=== PATIENT | female | born 1935 | race Caucasian/White ===

== ENCOUNTER 2020-06-18 16:22 | Inpatient (IN) | payer MEDICARE ==
[~2020-06-18] VITALS: Ht 157.5 cm; Wt 75.5 kg
[2020-06-18 17:48] LABS: BASOPHILS # (AUTO) 0.1 X10'3 (0-0.2); EOSINOPHILS # (AUTO) 0.1 X10'3 (0-0.9); EOSINOPHILS % (AUTO) 1.7 % (0-6); HEMATOCRIT 41.9 % (35.0-45.0); LYMPHOCYTES # (AUTO) 1.6 X10'3 (1.1-4.8); LYMPHOCYTES % (AUTO) 21.5 % (21-51); MEAN CORPUSCULAR HEMOGLOBIN 32.2 PG (27.0-31.0); MEAN CORPUSCULAR HGB CONC 33.4 g/dL (33.0-36.5); MEAN CORPUSCULAR VOLUME 96.3 FL (78-98); MEAN PLATELET VOLUME 7.9 FL (7.4-10.4); MONOCYTES # (AUTO) 0.7 X10'3 (0-0.9); MONOCYTES % (AUTO) 8.7 % (2-12); NEUTROPHILS # (AUTO) 5.1 X10'3 (1.8-7.7); NEUTROPHILS % (AUTO) 67.1 % (42-75); PLATELET COUNT 278 X10'3 (140-440); RED BLOOD COUNT 4.35 X10'6 (4.20-5.60); RED CELL DISTRIBUTION WIDTH 12.8 % (11.5-14.5); WHITE BLOOD COUNT 7.6 X10'3 (4.5-11.0)
[2020-06-18] MEDS ORDERED: diazepam 2mg tablet PO ONE (17:55)
[2020-06-18] MEDS ORDERED: diazepam 5mg tablet PO ONE (17:55)
[2020-06-18 18:01] LABS: ALANINE AMINOTRANSFERASE 26 U/L (12-78); ALBUMIN 3.7 G/DL (3.4-5.0); ALKALINE PHOSPHATASE 119 IU/L (46-116); ANION GAP 12 (8-16); ASPARTATE AMINO TRANSFERASE 30 U/L (10-37); BILIRUBIN,TOTAL 0.5 MG/DL (0.1-1.0); BLOOD UREA NITROGEN 21 MG/DL (7-18); BUN/CREATININE RATIO 30.4 (6.6-38.0); CALCIUM 9.8 MG/DL (8.5-10.1); CHLORIDE 101 MMOL/L (99-107); CREATININE 0.69 MG/DL (0.40-0.90); GLUCOSE 100 MG/DL (70-104); POTASSIUM 3.9 MMOL/L (3.5-5.1); SODIUM 139 MMOL/L (135-145); TOTAL CARBON DIOXIDE 26.2 MMOL/L (24-32); TOTAL PROTEIN 7.5 G/DL (6.4-8.2); eGFR 81 ML/MIN
[2020-06-18 18:05] LABS: TROPONIN I < 0.04 NG/ML (0.0-0.05)
--- NOTE | 2020-06-18 19:50 | NUR ---
Daughter at bedside. Pt requested additional water due to coughing. Soft collar still intact.
--- NOTE | 2020-06-18 20:35 | NUR ---
MD at bedside with pt and daughter.
[2020-06-18] MEDS ORDERED: acetaminophen 325mg tablet PO PRN (20:55)
[2020-06-18] MEDS ORDERED: potassium Cl 40MEQ/1/2NS 520ml 520 ML IV PRN ×2 (20:55)
[2020-06-18] MEDS ORDERED: magnesium hydroxide 30ml (MOM) UD suspension PO PRN (20:55)
[2020-06-18] MEDS ORDERED: ondansetron/PF 4mg/2ml inj IV PRN (20:55)
[2020-06-18] MEDS ORDERED: potassium Cl 20 mEq SR tablet PO PRN ×2 (20:55)
[2020-06-18] MEDS ORDERED: mag hydrox/Alum hydrox/simeth 30ml oral suspension PO PRN (20:55)
--- NOTE | 2020-06-18 21:40 | NUR ---
Pt sushil assisted with front wheel walker to bathroom by Greetz.
[2020-06-18] MEDS ORDERED: CALC-825 PO (21:49)
[2020-06-18] MEDS ORDERED: ASPI-1265 PO (21:49)
[2020-06-18] MEDS ORDERED: MELO-102 PO (21:49)
[2020-06-18] MEDS ORDERED: SIMV10TA2 PO (21:49)
[2020-06-18] MEDS ORDERED: FAMO20TA8 PO (21:49)
[2020-06-18] MEDS ORDERED: [UNRECOGNIZED DRUG - OTHER] PO (21:49)
[2020-06-18] MEDS ORDERED: HYDR-3965 PO (21:49)
[2020-06-18] MEDS ORDERED: FURO-150 PO (21:49)
[2020-06-18] MEDS ORDERED: LEVO50CA4 PO (21:49)
[2020-06-18] MEDS ORDERED: LOSA1TAB39 PO (21:49)
[2020-06-18] MEDS ORDERED: VITA-268 PO (21:49)
[2020-06-18] MEDS ORDERED: METRONIDAZOLE GEL 1% TOP (21:49)
[2020-06-18] MEDS ORDERED: AMLO2.5T2 PO (21:49)
[2020-06-18 22:40] VITALS: BP 163/66
[2020-06-18] MEDS ORDERED: famotidine 20mg tablet PO PRN (22:50)
[2020-06-18] MEDS ORDERED: HYDROcodone/acetaminophen 5mg/325mg tablet PO PRN (23:07)
[2020-06-19 06:00] VITALS: BP 106/64
--- NOTE | 2020-06-19 06:33 | NUR ---
Problems reprioritized. Patient report given, questions answered & plan of care reviewed with VALERIA Castrejon [employer].
[2020-06-19] MEDS: amLODIPine 5mg tablet PO SCH (07:49)
[2020-06-19] MEDS: furosemide 20MG tablet PO SCH (07:50)
[2020-06-19] MEDS: losartan 50mg tablet PO SCH (07:50)
[2020-06-19] MEDS: atorvastatin 10mg tablet PO SCH (07:50)
[2020-06-19] MEDS: HYDROchlorothiazide 25mg tablet PO SCH (07:50)
[2020-06-19] MEDS: levoTHYROXINE 25mcg tablet PO SCH (07:51)
[2020-06-19] MEDS: heparin, porcine 5000 units/ml vial SQ SCH ×2 (07:55→20:27)
[2020-06-19] MEDS ORDERED: non-formulary drug (Vitamin B Complex (B Complex) 1 TAB) PO SCH (08:00)
[2020-06-19] MEDS: K and/or MAG REPLACEMENT MC SCH ×3 (08:00→19:33)
[2020-06-19 08:49] LABS: BASOPHILS # (AUTO) 0.1 X10'3 (0-0.2); BASOPHILS % (AUTO) 0.9 % (0-1); EOSINOPHILS # (AUTO) 0.2 X10'3 (0-0.9); EOSINOPHILS % (AUTO) 2.5 % (0-6); HEMATOCRIT 40.2 % (35.0-45.0); HEMOGLOBIN 13.7 g/dl (12.0-16.0); LYMPHOCYTES # (AUTO) 1.9 X10'3 (1.1-4.8); LYMPHOCYTES % (AUTO) 30.8 % (21-51); MEAN CORPUSCULAR HEMOGLOBIN 32.3 PG (27.0-31.0); MEAN CORPUSCULAR HGB CONC 34.2 g/dL (33.0-36.5); MEAN CORPUSCULAR VOLUME 94.4 FL (78-98); MEAN PLATELET VOLUME 8.2 FL (7.4-10.4); MONOCYTES # (AUTO) 0.7 X10'3 (0-0.9); MONOCYTES % (AUTO) 10.9 % (2-12); NEUTROPHILS # (AUTO) 3.4 X10'3 (1.8-7.7); NEUTROPHILS % (AUTO) 54.9 % (42-75); PLATELET COUNT 274 X10'3 (140-440); RED BLOOD COUNT 4.26 X10'6 (4.20-5.60); RED CELL DISTRIBUTION WIDTH 12.9 % (11.5-14.5); WHITE BLOOD COUNT 6.2 X10'3 (4.5-11.0)
[2020-06-19 09:15] LABS: ALANINE AMINOTRANSFERASE 24 U/L (12-78); ALBUMIN 3.4 G/DL (3.4-5.0); ALKALINE PHOSPHATASE 107 IU/L (46-116); ANION GAP 9 (8-16); ASPARTATE AMINO TRANSFERASE 23 U/L (10-37); BILIRUBIN,TOTAL 0.9 MG/DL (0.1-1.0); BLOOD UREA NITROGEN 15 MG/DL (7-18); BUN/CREATININE RATIO 28.3 (6.6-38.0); CALCIUM 9.3 MG/DL (8.5-10.1); CHLORIDE 102 MMOL/L (99-107); CREATININE 0.53 MG/DL (0.40-0.90); GLUCOSE 91 MG/DL (70-104); POTASSIUM 3.6 MMOL/L (3.5-5.1); SODIUM 138 MMOL/L (135-145); TOTAL PROTEIN 6.9 G/DL (6.4-8.2); eGFR > 90 ML/MIN
[2020-06-19 10:00] VITALS: BP 144/57
[2020-06-19] MEDS ORDERED: magnesium Cl slow-release 64mg tablet PO PRN (10:30)
[2020-06-19] MEDS ORDERED: magnesium 4gm in 100ml NS 100 ML IV PRN (10:30)
[2020-06-19 17:00] VITALS: BP 141/74
[2020-06-19] MEDS: naproxen 500mg tablet PO SCH (17:11)
[2020-06-19 22:00] VITALS: BP 118/65
[2020-06-20 01:58] VITALS: BP 156/65
[2020-06-20 07:00] VITALS: BP 134/50
[2020-06-20] MEDS: losartan 50mg tablet PO SCH (07:24)
[2020-06-20] MEDS: naproxen 500mg tablet PO SCH (07:24)
[2020-06-20] MEDS: HYDROchlorothiazide 25mg tablet PO SCH (07:24)
[2020-06-20] MEDS: levoTHYROXINE 25mcg tablet PO SCH (07:24)
[2020-06-20] MEDS: atorvastatin 10mg tablet PO SCH (07:24)
[2020-06-20] MEDS: furosemide 20MG tablet PO SCH (07:24)
[2020-06-20] MEDS: amLODIPine 5mg tablet PO SCH (07:25)
[2020-06-20] MEDS: heparin, porcine 5000 units/ml vial SQ SCH (07:25)
[2020-06-20] MEDS ORDERED: aspirin 81mg tab.chew PO SCH (08:00)
[2020-06-20] MEDS: K and/or MAG REPLACEMENT MC SCH ×2 (08:00)
[2020-06-20 08:38] LABS: BASOPHILS # (AUTO) 0.1 X10'3 (0-0.2); BASOPHILS % (AUTO) 0.8 % (0-1); EOSINOPHILS # (AUTO) 0.1 X10'3 (0-0.9); EOSINOPHILS % (AUTO) 1.7 % (0-6); HEMATOCRIT 46.1 % (35.0-45.0); HEMOGLOBIN 15.4 g/dl (12.0-16.0); LYMPHOCYTES # (AUTO) 1.6 X10'3 (1.1-4.8); LYMPHOCYTES % (AUTO) 22.3 % (21-51); MEAN CORPUSCULAR HEMOGLOBIN 32.1 PG (27.0-31.0); MEAN CORPUSCULAR HGB CONC 33.4 g/dL (33.0-36.5); MEAN CORPUSCULAR VOLUME 96.3 FL (78-98); MEAN PLATELET VOLUME 8.5 FL (7.4-10.4); MONOCYTES # (AUTO) 0.6 X10'3 (0-0.9); MONOCYTES % (AUTO) 7.9 % (2-12); NEUTROPHILS # (AUTO) 4.9 X10'3 (1.8-7.7); NEUTROPHILS % (AUTO) 67.3 % (42-75); PLATELET COUNT 297 X10'3 (140-440); RED BLOOD COUNT 4.79 X10'6 (4.20-5.60); RED CELL DISTRIBUTION WIDTH 12.9 % (11.5-14.5); WHITE BLOOD COUNT 7.2 X10'3 (4.5-11.0)
--- NOTE | 2020-06-20 09:18 | NUR ---
Pt states she saw bright red blood on tissue paper while wiping. Pt thinks it's from Hemorrhoids. Addendum: 06/20/20 at 09 by Mamie MANRIQUEZ Amended: Links added.
[2020-06-20 09:23] LABS: MAGNESIUM 2.1 MG/DL (1.5-2.4); PHOSPHORUS 3.4 MG/DL (2.3-4.5)
[2020-06-20 09:25] LABS: ALANINE AMINOTRANSFERASE 25 U/L (12-78); ALBUMIN/GLOBULIN RATIO 1.1 (1.1-1.5); ALKALINE PHOSPHATASE 124 IU/L (46-116); ANION GAP 9 (8-16); ASPARTATE AMINO TRANSFERASE 23 U/L (10-37); BILIRUBIN,TOTAL 0.7 MG/DL (0.1-1.0); BLOOD UREA NITROGEN 18 MG/DL (7-18); BUN/CREATININE RATIO 32.1 (6.6-38.0); CALCIUM 9.8 MG/DL (8.5-10.1); CHLORIDE 98 MMOL/L (99-107); CREATININE 0.56 MG/DL (0.40-0.90); GLUCOSE 113 MG/DL (70-104); POTASSIUM 3.7 MMOL/L (3.5-5.1); SODIUM 133 MMOL/L (135-145); TOTAL CARBON DIOXIDE 25.8 MMOL/L (24-32); TOTAL PROTEIN 7.8 G/DL (6.4-8.2); eGFR > 90 ML/MIN
[2020-06-20 10:00] VITALS: BP 126/59
[2020-06-20 11:25] LABS: CLARITY,URINE CLEAR (Clear); COLOR,URINE STRAW (Yellow); GLUCOSE, URINE NEGATIVE (Neg); KETONES,URINE NEGATIVE (Neg); LEUKOCYTE ESTERASE ,URINE TRACE (Neg); NITRITES, URINE NEGATIVE (Neg); OCCULT BLOOD,URINE MODERATE (Neg); PROTEIN,URINE NEGATIVE (Neg); UROBILINOGEN,URINE 0.2 E.U/dL (0.2-1.0)
[2020-06-20 11:32] LABS: UA COLLECTION TYPE NON-SPECIFIED
[2020-06-20 11:38] LABS: SQUAMOUS EPITHELIAL CELL,UR FEW /LPF (FEW)
[2020-06-20 11:39] LABS: BACTERIA,URINE 1+ /HPF (Neg)
[2020-06-20 11:40] LABS: WBC,URINE 0-4 /HPF (0-4)
--- NOTE | 2020-06-20 11:53 | NUR ---
Patient was discharge Iv and tele was removed from Patient. Patient left with daughter. Medication was called into pharmacy
[2020-06-20] MEDS ORDERED: MECL-226 PO (14:30)
[2020-06-20] MEDS ORDERED: CEFD300C3 PO (16:20)
== END 2020-06-20 15:00 | disposition home or self-care (01) | DRG 690 ==
LOC: ER 16:24 → ED HOLD 21:57 → ORTHO 4S 22:38 → OBSVTOIN 06-20 10:30
PROVIDERS: ADMIT Internal Medicine; ATTEND Family Medicine
DX: N39.0 Urinary tract infection, site not specified (principal); H81.10 Benign paroxysmal vertigo, unspecified ear; E03.9 Hypothyroidism, unspecified; Z66 Do not resuscitate; E78.00 Pure hypercholesterolemia, unspecified; E78.5 Hyperlipidemia, unspecified; M19.90 Unspecified osteoarthritis, unspecified site; G89.29 Other chronic pain; I10 Essential (primary) hypertension; Z90.710 Acquired absence of both cervix and uterus; Z79.890 Hormone replacement therapy
CPT/HCPCS: 36415; 70551; 80053; 81001; 83735; 84100; 84443; 84484; 85025; 87081; 87088; 93005; 93306; 93308; 93880; 97161; 97530; 99285; G0378; J1644

== ENCOUNTER 2021-10-22 09:09 | Outpatient (CLI) | payer MEDICARE ==
[2021-10-22] VITALS (7 sets, daily range): BP systolic 111–165; BP diastolic 37–55
[~2021-10-22 09:09] MED LIST: AMLO2.5T2 PO; ASPI-1265 PO; CALC-825 PO; FAMO20TA8 PO; FURO-150 PO; HYDR-3965 PO; LEVO50CA4 PO; LOSA1TAB39 PO; MECL-226 PO; METRONIDAZOLE GEL 1% TOP; SIMV10TA2 PO; VITA-268 PO; [UNRECOGNIZED DRUG - OTHER] PO
[2021-10-22] MEDS ORDERED: regadenoson 0.4mg/5ml syringe IV ONE (09:55)
== END 2021-10-22 23:59 | disposition home or self-care (01) ==
LOC: RAD 09:09
PROVIDERS: ATTEND Internal Medicine Cardiovascular Disease
DX: I25.10 Atherosclerotic heart disease of native coronary artery without angina pectoris (principal)
CPT/HCPCS: 78452; 93017; A9500; J2785